=== PATIENT | male | born 1955 | race Two or more races ===

== ENCOUNTER 2018-04-03 06:23 | Day surgery (SDC) | payer OTHER ==
[~2018-04-03] VITALS: Ht 193 cm; Wt 68.0 kg
[2018-04-03] VITALS (7 sets, daily range): BP systolic 101–125; BP diastolic 64–74
[2018-04-03] MEDS ORDERED: LINZESS145 MCG PO (07:04)
[2018-04-03] MEDS ORDERED: PROTONIX40 MG ORAL (07:04)
[2018-04-03] MEDS ORDERED: PERCOCET 10-321 EACH ORAL (07:04)
--- NOTE | 2018-04-03 07:47 | Short Stay Surgery H&P ---
History of Present Illness History of Present Illness Chief Complaint Abdominal pains/history of peptic ulcer/GERDs HPI Brandon Esteban is a 62 year old male who was admitted on for Abdominal Pain /Gerds/ peptic ulcer Patient History Allergies: Coded Allergies: No Known Allergies (Unverified , 04/03/18) PAST MEDICAL HISTORY: (1) S/P revision of total hip (2) History of appendectomy (3) S/P tonsillectomy (4) Pituitary tumor (5) Pancreatitis (6) Gallstone Medication History Scheduled Linaclotide (Linzess), 145 MCG PO DA, (Reported) Pantoprazole* (Protonix*), 40 MG ORAL DAILY, (Reported) Scheduled PRN Oxycodone Hcl/Acetaminophen 10-325 Mg Tablet (Percocet 10-325 Mg Tablet*), 1 TAB ORAL Q12HR PRN for For Pain, (Reported) Review of Systems Cardiovascular: Reports: no symptoms Respiratory: Reports: no symptoms Skeletal: Reports: trauma Gastrointestinal: Reports: peptic ulcer disease, gastro esophageal reflux disease Genitourinary: Reports: no symptoms Neurologic: Reports: no symptoms Endocrine: Reports: no symptoms Hematologic: Reports: no symptoms Physical Exam Vital Signs Last Vital Signs Date Time Temp Pulse Resp B/P (MAP) Pulse Ox O2 Delivery O2 Flow Rate FiO2 04/03/18 07:04 98.2 65 20 101/64 97 Room Air 98.2 Skin: normal HENT: normal Heart: normal Lungs: normal Abdomen: abnormal Extremities: normal Genitourinary: normal Plan Plan of Care Upper and lower GI endoscopy Preop Interventions None. Summary of Findings See the reports. Attestation Are the patient's medical conditions optimized for surgery? Attestation Response: yes Salvatore Wilde MD Apr 03, 2018 07:47
--- NOTE | 2018-04-03 07:48 | Pre-Procedure Note/Attestation ---
Pre-Procedure Note/Attestation Complete Prior to Procedure Planned Procedure: left Procedure Narrative: Examination of the upper and the lower GI tract with possible biopsy Indications for Procedure Pre-Operative Diagnosis: R/O Peptic Ulcer/Gastritis/colitis Attestation I attest that I discussed the nature of the procedure; its benefits; risks and complications; and alternatives (and the risks and benefits of such alternatives ), prior to the procedure, with the patient (or the patient's legal screening representative). I attest that, if there was a reasonable possibility of needing a blood transfusion, the patient (or the patient's legal screening representative) was given the [place] [facility] [employer] [facility] standardized written summary, pursuant to the [place] Blood Safety Act ([place] Health and Safety Code # 1645, as amended). I attest that I re-evaluated the patient just prior to the surgery and that there has been no change in the patient's H&P, except as documented below: Salvatore Wilde MD Apr 03, 2018 07:48
[2018-04-03] MEDS ORDERED: LR 1000ml ONE (08:00)
[2018-04-03] MEDS ORDERED: Propofol 200mg/20ml IV ONE (08:00)
--- NOTE | 2018-04-03 08:25 | Anethesia Preoperative Eval ---
Anesthesia Pre-op PMH/ROS General Date of Evaluation: Apr 03, 2018 Time of Evaluation: 08:00 ASA Score: ASA 2 Mallampati Score Class I : Soft palate, uvula, fauces, pillars visible Class II: Soft palate, uvula, fauces visible Class III: Soft palate, base of uvula visible Class IV: Only hard plate visible Mallampati Classification: Class II Allergies: Coded Allergies: No Known Allergies (Unverified , 04/03/18) Past Medical History Gastrointestinal/Genitourinary: Reports: GERD Anesthesia Pre-op Phys. Exam Physician Exam Last Vital Signs Date Time Temp Pulse Resp B/P (MAP) Pulse Ox O2 Delivery O2 Flow Rate FiO2 04/03/18 07:04 98.2 65 20 101/64 97 Room Air 98.2 Airway Exam Mallampati Score: Class II Fermin Dolan MD Apr 03, 2018 08:25
[2018-04-03] MEDS ORDERED: NS 500ML IVPB ONE (08:35)
--- NOTE | 2018-04-03 08:48 | Endoscopy Procedure Note ---
Endoscopy Procedure Note General Indication for Procedure: Abdominal -pains/History of peptic ulcer wity bleeding/constipation Procedures Performed: EGD - Twisted stomach with moderate gastritis/antral biopsy done. S/P Ildefonso fundoplication, colonoscopy - Extremely difficult procedure due to very poor colon prep. Significant colon redundancy. Internal hemorrhoids. Due to poor colon prep diminutive small polyps could not be ruled out Specimen: yes Pt Tolerated Procedure Well: Yes Estimated Blood Loss: none Anesthesia Anesthesiologist: Dr. Dolan Anesthesia: moderate sedation Medications Medication Given: see anesthesia record Inserted Devices Implant(s) used?: No Quality Quality of Bowel Preparation: Poor Did scope reach the cecum?: Yes Was there any complications?: No GI Core Measures 50 yrs or older w/o bx or poly: Yes 10yrs. F/U not recommended: Yes 10 yrs. F/U needed: Yes Med reason:<3 yrs.: System Reason:<3 yrs.: Last colonoscopy >= to 3yrs: Yes Salvatore Wilde MD Apr 03, 2018 08:48
--- NOTE | 2018-04-03 08:49 | Discharge Instructions ---
Discharge Instructions Discharge Instructions Follow up with: See the doctor in his office after 2 weeks. For Congestive Heart Failure Reminder Report to your physician any weight gain of 5 pounds or more in one week. Salvatore Wilde MD Apr 03, 2018 08:49
--- NOTE | 2018-04-03 08:51 | Immediate Post-Op Evaluation ---
Immediate Post-Op Evalulation Immediate Post-Op Evalulation Procedure: egd colon Date of Evaluation: Apr 03, 2018 Time of Evaluation: 08:51 Nausea: No Vomiting: No Fermin Dolan MD Apr 03, 2018 08:51
--- NOTE | 2018-04-03 09:49 | 48 Hour Post Anesthesia Eval ---
Post Anesthesia Evaluation Procedure: egd colon Date of Evaluation: Apr 03, 2018 Time of Evaluation: 09:49 Nausea: No Vomiting: No Fermin Dolan MD Apr 03, 2018 09:49
--- NOTE | 2018-04-03 17:45 | Pre-op HX & Phy Repo 2 SIG ---
DATE OF ADMISSION: 04/03/2018 HISTORY OF PRESENT ILLNESS: The applicant is being seen prior to undergoing the procedure of upper and lower GI endoscopy for which he has been scheduled to evaluate his gastrointestinal complaints secondary to the work related injuries. The patient is a 62-year-old gentleman who has been experiencing abdominal pain along with constipation. The pains are located over the upper part of the abdomen and mostly in the epigastric area. The applicant does have history of gastroesophageal reflux as well. He reports that in the past he has had the peptic ulcer disease with bleeding for which he has undergone surgery. Obviously at that time, he was found to have bleeding ulcer, which required surgery. The patient since he has been injured at job site has been receiving multiple medications including strong analgesics and nonsteroidal anti-inflammatory agents after which he thinks and he believes that his symptoms of GI tract have been aggravated and much more severe at this time. He reports also has lost significant amount of weight, approximately 35 pounds. However, the etiology and the reason for his weight loss is not clear as yet. 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 The applicant also complains of significant constipation for which he is receiving medications of anticonstipation including Linzess. The applicant has received also adequate workup under the care of Dr. Conrad. He was also received a CT scan of the abdomen in November 2017. PAST MEDICAL HISTORY: The applicant has a history of pituitary tumor and as I mentioned, peptic ulcer disease with bleeding and perforation, also has had history of pancreatitis and gallstones. PAST SURGICAL HISTORY: The patient has received Ildefonso fundoplication in 2007 and cholecystectomy for gallstones, also has received surgeries for the right hip and right knee along with the left hip as well. In the past, he has had history of the tonsil operation, appendectomy and cholecystectomy. HABITS: The applicant drinks wine a couple times per month and he used to smoke cigarettes, but has stopped for the past 2 years. MEDICATIONS: Currently, he is taking Linzess along with Percocet and Protonix. REVIEW OF SYSTEMS: Basically, history of present illness. PHYSICAL EXAMINATION: GENERAL: Reveals an alert, well oriented, and very pleasant gentleman, does not seem to be in any acute distress. VITAL SIGNS: All stable. HEENT: Normocephalic. Pupils are equal in size and reactive to light and accommodation. No jaundice. NECK: Supple. No JVD, thyromegaly, or adenopathy. CHEST: Clear to auscultation and percussion. No rales or rhonchi. HEART: S1 and S2 normal. Regular rhythm. No gallops or murmur. ABDOMEN: Soft, but there are areas of tenderness over the epigastric area and right lower quadrant, however, no hepatosplenomegaly, no palpable mass. Bowel sounds are adequately present. EXTREMITIES: Within normal limits. CENTRAL NERVOUS SYSTEM: Within normal limits. PRELIMINARY PREOPERATIVE IMPRESSION: 1. Abdominal pain of uncertain etiology, rule out gastroesophageal acid reflux, rule out peptic ulcer disease, gastritis, duodenal ulcer secondary to side effects of NSAID medications. 2. History of bleeding peptic ulcer disease with perforation. 3. Generalized abdominal pain of uncertain etiology, possibly related to irritable bowel syndrome, IBS aggravated by anxiety and stress related to work accident and side effects of medications. 4. History of pituitary tumor, questionable status. 5. Constipation, mostly secondary to lack of physical activity and side effects of medications including analgesics. RECOMMENDATION: The applicant seems to be stable at this time to undergo the procedure of upper and lower GI endoscopy. He understands the risks and benefits and will sign the consent. Said Xiomara Wilde DR: LYNDA JOB#: [id number] CC:
--- NOTE | 2018-04-03 18:00 | Operative Note - Dictated ---
DATE OF OPERATION: 04/03/2018 SURGEON: Salvatore Wilde M.D. PROCEDURE: Esophagogastroduodenoscopy with biopsy. PREOPERATIVE DIAGNOSES: 1. Abdominal pain. 2. History of gastroesophageal reflux. POSTOPERATIVE DIAGNOSES: 1. Very difficult procedure due to torsion of the stomach. 2. Status post Ildefonso fundoplication. 3. Moderate gastritis. Biopsy was taken from the antral area. MEDICATION USED: Per Dr. Dolan, anesthesiologist. INSTRUMENT: GIF Olympus upper GI video endoscope. DESCRIPTION OF PROCEDURE: The patient after arriving in endoscopy unit was told about risks and benefits of the procedure, which he accepted and signed informed consent. At this time, he was put on the left lateral decubitus position. After adequate IV sedation, the scope was gently passed through the cricopharyngeal area, was lodged into the upper esophagus, and gradually advanced towards gastroesophageal junction. The entire length of the esophagus was normal. GE junction also looked normal and there was no any evidence of hiatal hernia or Hayes's. At this time, the scope was advanced into the stomach. Gastric cavity was distended due to the changes to the stomach, which was secondary to prior fundoplication, the examination was rather difficult as the stomach looked to be torsioned. However, the areas of the fundus and the part of the body, which were seen in the retroflexion maneuver, revealed evidence of moderate gastritis. Subsequently with difficult maneuvers, which took a lot of time to pass through the area and introduced the scope into the lower part of the stomach and antral area, the stomach was highly twisted. These areas also revealed evidence of moderate inflammatory process, but no ulcers or tumors or polyps etc. was found. One random biopsy from the antral area was obtained and subsequently, the scope was passed through normal looking pylorus. First and second portion of duodenum were also found to be completely normal. At this time, the scope was pulled out and the procedure was terminated. The patient tolerated the procedure well. Salvatore Wilde M.D. DR: JANELLE JOB#: [id number] CC:
--- NOTE | 2018-04-03 18:30 | Operative Note - Dictated ---
DATE OF OPERATION: 04/03/2018 SURGEON: Salvatore Wilde M.D. PROCEDURE: Total colonoscopy. PREOPERATIVE DIAGNOSES: Abdominal pain and constipation. POSTOPERATIVE DIAGNOSES: 1. Extremely difficult colonoscopic examination due to significant tortuosity and twisted colon and possibly intra-abdominal adhesions. 2. Very poor colonic preparation with evidence of internal hemorrhoid, nonbleeding, however, due to extreme poor colon preparation, presence of a small diminutive polypoid lesion could not be ruled out. The scope reached to the base of the cecum. No gross pathology was found. MEDICATION USED: Per Dr. Dolan, anesthesiologist. INSTRUMENT: GIF Olympus videocolonoscope. DESCRIPTION OF PROCEDURE: The patient, after arriving in the endoscopy unit, was told about risks and benefits of the procedure, which he accepted and signed informed consent. At this time, he was put in the left lateral decubitus position. After adequate IV sedation, the scope was gently passed through the anal area, which revealed evidence of hemorrhoidal tags and internal hemorrhoid of grade II/III. This hemorrhoid was not bleeding and friable. At this time, the scope was advanced into the rectum, which revealed significant amount of liquidy stool covering all the rectal mucosa. Significant amount of time was spent to wash this area and irrigate, and finally, the scope was gradually passed through the rectosigmoid area and introduced into the left colon, which was highly redundant and there was evidence of possible adhesions around the colon, which made the examination significantly difficult. Through a long period of time, the scope was gradually advanced into the left descending colon, the splenic flexure, transverse colon, and finally was guided into the right colon all the way to the base of the cecum. There was no any gross pathology such as tumors, polyps, bleeding ulcers, strictures, etc. However, as I mentioned, due to poor cleanup, a small diminutive polypoid lesion could not be ruled out. At this point within 6 minutes, the scope was gradually pulled out and the procedure was terminated. The patient tolerated the procedure well and left the endoscopy room in a good condition. Salvatore Wilde M.D. DR: LYNDA JOB#: [id number] CC:
== END 2018-04-03 10:00 | disposition home or self-care (01) ==
LOC: SDS 06:23
DX: R10.9 Unspecified abdominal pain (principal); K59.00 Constipation, unspecified; K64.8 Other hemorrhoids; K29.70 Gastritis, unspecified, without bleeding; Z87.11 Personal history of peptic ulcer disease; K58.9 Irritable bowel syndrome, unspecified; F41.9 Anxiety disorder, unspecified; Z87.891 Personal history of nicotine dependence; Z90.89 Acquired absence of other organs; Z90.49 Acquired absence of other specified parts of digestive tract
CPT/HCPCS: 43239; 45378; J2704; J7040; J7120